=== PATIENT | female | born 1965 | race Caucasian/White ===

== ENCOUNTER 2023-05-23 16:36 | Emergency (ER) | payer OTHER, SELFPAY ==
[2023-05-23 16:44] VITALS: BP 133/91
[2023-05-23 17:11] LABS: % Basophils 0.8 % (0-2); % Eosinophils 7.6 % (0-6); % Immature Granulocytes 0.4 % (0-0.5); % Lymphocytes 36.9 % (20.5-51.1); % Monocytes 8.1 % (1.7-9.3); % Neutrophils 46.2 % (42.2-75.2); Absolute Basophils 0.1 10^3/uL (0-0.2); Absolute Eosinophils 0.6 10^3/uL (0-0.7); Absolute Lymphocytes 2.9 10^3/uL (1.2-3.4); Absolute Monocytes 0.6 10^3/uL (0.1-0.6); Absolute Neutrophils 3.6 10^3/uL (1.4-6.5); Hemoglobin 12.7 g/dL (12.0-16.0); Mean Corp Hgb Conc. 33.4 g/dL (33.0-37.0); Mean Corpuscular Hgb 28.2 pg (27.0-31.0); Mean Corpuscular Volume 84.3 fL (81.0-99.0); Mean Platelet Volume 10.5 fL (7.4-10.4); Nucleated Red Blood Cells % 0 %; Platelet Count 274 10^3/uL (130-400); Red Blood Cell Count 4.51 10^6/uL (4.20-5.40); White Blood Cell Count 7.8 10^3/uL (4.8-10.8)
[2023-05-23 17:25] LABS: ALT (SGPT) 16 U/L (0-35); AST (SGOT) 23 U/L (14-36); Albumin 4.4 g/dl (3.5-5.0); Alkaline Phosphatase 62 U/L (38-126); Blood Urea Nitrogen 29 mg/dl (7-17); Calcium 9.6 mg/dl (8.4-10.2); Carbon Dioxide 30 mmol/L (22-30); Chloride 104 mmol/L (98-107); Glucose 105 mg/dl (70-99); Potassium 5.4 mmol/L (3.5-5.1); Sodium 138 mmol/L (135-145); Total Bilirubin 0.4 mg/dl (0.2-1.3); Total Protein 7.5 g/dl (6.3-8.2); eGFR > 60.00
[2023-05-23 17:31] LABS: Troponin I < 0.012 ng/ml
--- NOTE | 2023-05-23 18:29 | ED.GENMED ---
History of Present Illness
<Gina Blackwell PA-C - Last Filed: 05/24/23 00:58>
General
Chief Complaint: Chest Pain
Source: patient
Exam Limitations: none
Time Seen by Provider: 05/23/23 18:05
Nursing documentation reviewed up to this point in time: agreed with
Travel History
Have you had any contact with someone who has COVID-19?: No
Do you have any symptoms of coronavirus? Fever > 100 degrees, chills, cough, shortness of breath, sore throat, loss of taste or smell, muscle aches, or headache?: No
History of Present Illness
History of Present Illness:
This is a 58-year-old female with no pertinent past medical history presenting to emergency department today with chest discomfort for the past 3-1/2 hours. She reports that she noticed the pain while at work today and noticed it when to take a
deep breath. She also feels that the pain worsens when she bends over and feels that when she bends over the discomfort will radiate to her jaw. She has no associated nausea, vomiting, back pain, shortness of breath. She denies any pain or
swelling in her legs that is new for her. She denies any recent long distance travel, recent hospitalizations, recent peritoneal mobility. She has not taken any forms of exogenous estrogen. She never had anything like this before. She denies any
URI symptoms, recent illnesses.
Review of Systems
<Gina Blackwell PA-C - Last Filed: 05/24/23 00:58>
Review of Systems
All Other Systems: ROS reviewed and negative except as documented in HPI and ROS
Phy Exam
<Gnia Blackwell PA-C - Last Filed: 05/24/23 00:58>
Physical Exam
Physical Exam:
General: Patient appears well and is in no acute distress
Skin: Warm and dry, no rashes or lesions
Cardiac: Regular rate and rhythm, no tenderness palpation of external chest
Pulm: Normal respiratory effort, lung sounds are equal bilaterally, no wheezes rales or rhonchi.
Musculoskeletal: Negative Homans' sign bilaterally. No redness or swelling of bilateral calves, no edema
Scores
<Gina Blackwell PA-C - Last Filed: 05/24/23 00:58>
Heart Score for Chest Pain Patients
STEMI patient?: No
History: Slightly or Non-Suspicious
ECG: Normal
Age: >45 - <65 years
Risk Factors: No Risk Factors
Troponin: </= Normal Limit
Heart Score for Chest Pain Patients: 1
Heart Score Risk: 2.5% MACE over next 6 weeks
Course
<Gina Blackwell PA-C - Last Filed: 05/24/23 00:58>
Orders/Labs/Results
Orders:
Orders
05/23/23 16:38
EKG [Electrocardiogram (*1)] Urgent
Reason for Study: Chest Pain
EKG- Treatment ONCE
05/23/23 16:55
Complete Blood Count/With Diff Urgent
Comprehensive Metabolic Panel Urgent
Troponin I Urgent
05/23/23 17:58
CR Chest - 2 Views Urgent
Comment:
Reason For Exam: sob
05/23/23 18:13
Respiratory Syncytial Virus Urgent
AMY Source: Nasal Swab
Specimen Description:
Date Specimen was Collected: 05/23/23
Time Specimen was Collected: 18:06
05/23/23 18:25
D-Dimer Urgent
05/23/23 18:58
Electrocardiogram (*1) Urgent
Reason for Study: Chest Pain
EKG- Treatment ONCE
05/23/23 19:40
Troponin I Urgent
Abnormal Lab Results
05/23/23
16:55
MPV 10.5 H fL
(7.4-10.4)
Eosinophils % 7.6 H %
(0-6)
Potassium 5.4 H mmol/L
(3.5-5.1)
BUN 29 H mg/dl
(7-17)
Glucose 105 H mg/dl
(70-99)
05/23/23 16:55
05/23/23 16:55
Vital Signs
Initial and Last Documented VS:
Initial Vital Signs
Temp Pulse Resp BP Pulse Ox
98.3 F 78 16 133/91 98
05/23/23 16:44 05/23/23 16:44 05/23/23 16:44 05/23/23 16:44 05/23/23 16:44
Last Documented Vital Signs
Temp Pulse Resp BP Pulse Ox
98.3 F 78 16 133/91 98
05/23/23 16:44 05/23/23 16:44 05/23/23 16:44 05/23/23 16:44 05/23/23 16:44
<Eron Ratliff, DO - Last Filed: 05/23/23 19:13>
Orders/Labs/Results
Orders:
Orders
05/23/23 16:38
EKG [Electrocardiogram (*1)] Urgent
Reason for Study: Chest Pain
EKG- Treatment ONCE
05/23/23 16:55
Complete Blood Count/With Diff Urgent
Comprehensive Metabolic Panel Urgent
Troponin I Urgent
05/23/23 17:58
CR Chest - 2 Views Urgent
Comment:
Reason For Exam: sob
05/23/23 18:13
Respiratory Syncytial Virus Urgent
AMY Source: Nasal Swab
Specimen Description:
Date Specimen was Collected: 05/23/23
Time Specimen was Collected: 18:06
05/23/23 18:25
D-Dimer Urgent
05/23/23 18:58
Electrocardiogram (*1) Urgent
Reason for Study: Chest Pain
EKG- Treatment ONCE
05/23/23 19:40
Troponin I Urgent
Abnormal Lab Results
05/23/23
16:55
MPV 10.5 H fL
(7.4-10.4)
Eosinophils % 7.6 H %
(0-6)
Potassium 5.4 H mmol/L
(3.5-5.1)
BUN 29 H mg/dl
(7-17)
Glucose 105 H mg/dl
(70-99)
05/23/23 16:55
05/23/23 16:55
Vital Signs
Initial and Last Documented VS:
Initial Vital Signs
Temp Pulse Resp BP Pulse Ox
98.3 F 78 16 133/91 98
05/23/23 16:44 05/23/23 16:44 05/23/23 16:44 05/23/23 16:44 05/23/23 16:44
Last Documented Vital Signs
Temp Pulse Resp BP Pulse Ox
98.3 F 78 16 133/91 98
05/23/23 16:44 05/23/23 16:44 05/23/23 16:44 05/23/23 16:44 05/23/23 16:44
<Gina Blackwell PA-C - Last Filed: 05/24/23 00:58>
MDM/Problems Addressed
Differential Diagnosis Includes:
Differentials include ACS, PE, pneumonia, musculoskeletal sprain/strain
MDM/Problems Addressed:
Chest pain
Chronic conditions affecting care:
n/a
Acute Exacerbation and/or Progression of Chronic Illness:
n/a
<Gina Blackwell PA-C - Last Filed: 05/24/23 00:58>
*Radiology
Radiology exam reviewed: preliminary read by ED provider (No acute cardiopulmonary abnormality)
*Pulse Oximetry
Patient hypoxic: no
*EKG
Interpreted by ED Provider?: Yes
EKG Intrepretation Date: 05/24/23
Interpretation: abnormal
Comparison EKG: changes noted (new PACs, upon recheck before discharge, PACs absent )
Heart Rate: 74
Rate: normal
Rhythm: sinus
[place]: normal axis
Interval: normal interval, normal QT interval and normal TN interval
QRS Pattern: normal QRS
Ischemia: no ischemia
*Critical Care Note
Total Time (30-74mins, 75-104mins- exclusive of procedures): Not Applicable
Data Reviewed
Review of Other/Old Records Reveals: Records (No recent hospitalizations, patient had operation in 2016 for)
Prescriptions/Medications Considered But Not Given:
n/a
Further Testing Considered But Not Given:
n/a
<Gina Blackwell PA-C - Last Filed: 05/24/23 00:58>
Patient Management
Escalation/DeEscalation of care consider admission/obs:
This is a 50-year-old female presenting to emergency department today with pleuritic chest pain. She has no pertinent past medical history. Her physical exam was unremarkable. Her initial EKG demonstrated normal sinus rhythm with PACs and initial
troponin was normal. Her repeat EKG demonstrated normal sinus rhythm and her repeat troponin is negative. D-dimer is negative. Chest x-ray showed no acute cardiopulmonary abnormality. She was not hypoxic. I suspect her symptoms likely
musculoskeletal or anxiety related. She will follow-up with [facility] cardiology. Patient vies return to the ER should she experience shortness of breath, worsening of her symptoms, or other concerning symptoms.
ED Attending Note
<Gina Blackwell PA-C - Last Filed: 05/24/23 00:58>
-
Portions of this chart may have been created with voice recognition software.� Occasional wrong word or��sound alike� substitutions may have occurred due to the inherent limitations of voice recognition software.
<Eron Ratliff, DO - Last Filed: 05/23/23 19:13>
ED Attending Note
Patient seen and examined by attending physician: Yes
I performed the substantive portion of visit, reviewed & personally made and approve the management plan that is documented in note by myself or EITAN.: Yes
ED Attending Note:
Seen with PA examined independently, sharp chest pain worse with deep breath and sitting forward EKG noted she did say that the pain went into her throat, troponin noted, will repeat she like to follow-up with CBC at discharge
D-dimer chest x-ray noted
Discharge Plan
Departure
Patient Disposition: Home (Routine Discharge)
Date of Disposition: 05/23/23
Time of Disposition: 20:37
Patient with high blood pressure during this ER visit?: Yes
Condition: Good
Discharge Problem:
Chest pain
Instructions: Chest Pain CBC Follow Up, BLOOD PRESSURE
Activity Restrictions/Additional Instructions:
Please return emergency department should you experience worsening of your symptoms or shortness of breath.
Please follow-up with your primary care provider. Please follow-up with Dr. Reynoso
Interventions
Interventions:
*General Assessment Last Done: 05/23/23 20:57
*Nursing Disposition Last Done: 05/23/23 20:57
ED- Cardiac Assessment Last Done: 05/23/23 18:25
Discharge Date and Time
Discharge Date/Time: 05/23/23 20:57
[2023-05-23 18:46] LABS: D-Dimer 0.45 ug/mlFEU (0.00-0.50)
[2023-05-23 20:12] LABS: Troponin I < 0.012 ng/ml
== END 2023-05-23 20:57 | disposition home or self-care (01) ==
LOC: EMR 16:36
PROVIDERS: Physician Assistant; EMERGENCY PHYSICIAN Emergency Medicine; FAMILY PHYSICIAN Family Medicine
DX: R07.1 Chest pain on breathing (principal); R68.84 Jaw pain; R03.0 Elevated blood-pressure reading, without diagnosis of hypertension; Z88.3 Allergy status to other anti-infective agents; Z88.0 Allergy status to penicillin
CPT/HCPCS: 99283; 71046; 80053; 84484; 85025; 85379; 87807; 93005

== ENCOUNTER → 2023-06-09 09:56 | Outpatient (REF) | payer OTHER, SELFPAY | LOC: RCS 09:56 | PROVIDERS: ATTENDING PHYSICIAN Internal Medicine Cardiovascular Disease; FAMILY PHYSICIAN Family Medicine | DX: R07.2 Precordial pain (principal) | CPT/HCPCS: 93017 ==

== ENCOUNTER → 2023-07-21 08:56 | Outpatient (REF) | payer OTHER, SELFPAY | LOC: DHCBC MAIN 08:56 | PROVIDERS: ATTENDING PHYSICIAN Internal Medicine Cardiovascular Disease; FAMILY PHYSICIAN Family Medicine | DX: R07.2 Precordial pain (principal) | CPT/HCPCS: 93306 ==

== ENCOUNTER → 2023-10-02 06:23 | Day surgery (SDC) | payer OTHER, SELFPAY | LOC: GI 06:23 | PROVIDERS: ATTENDING PHYSICIAN Internal Medicine Gastroenterology | DX: Z12.11 Encounter for screening for malignant neoplasm of colon (principal); Z53.9 Procedure and treatment not carried out, unspecified reason | CPT/HCPCS: 45378 ==

== ENCOUNTER → 2024-01-22 06:22 | Day surgery (SDC) | payer OTHER, SELFPAY | LOC: GI 06:22 | PROVIDERS: ATTENDING PHYSICIAN Internal Medicine Gastroenterology | DX: Z12.11 Encounter for screening for malignant neoplasm of colon (principal); K57.30 Diverticulosis of large intestine without perforation or abscess without bleeding; K62.89 Other specified diseases of anus and rectum | CPT/HCPCS: G0121 ==

== ENCOUNTER 2024-07-24 02:49 | Observation (INO) | payer OTHER, SELFPAY ==
[2024-07-23 19:34] VITALS: BP 142/93
[2024-07-23 19:52] LABS: % Basophils 0.5 % (0-2); % Eosinophils 1.1 % (0-6); % Immature Granulocytes 0.2 % (0-0.5); % Lymphocytes 15.8 % (20.5-51.1); % Monocytes 6.4 % (1.7-9.3); Absolute Basophils 0.1 10^3/uL (0-0.2); Absolute Eosinophils 0.1 10^3/uL (0-0.7); Absolute Lymphocytes 2.1 10^3/uL (1.2-3.4); Absolute Monocytes 0.9 10^3/uL (0.1-0.6); Absolute Neutrophils 10.1 10^3/uL (1.4-6.5); Hematocrit 39.3 % (37.0-47.0); Hemoglobin 13.5 g/dL (12.0-16.0); Mean Corp Hgb Conc. 34.4 g/dL (33.0-37.0); Mean Corpuscular Hgb 27.8 pg (27.0-31.0); Mean Platelet Volume 10.4 fL (7.4-10.4); Nucleated Red Blood Cells % 0 %; Platelet Count 237 10^3/uL (130-400); Red Blood Cell Count 4.85 10^6/uL (4.20-5.40); Red Cell Dist. Width 13.2 % (11.5-14.5); White Blood Cell Count 13.3 10^3/uL (4.8-10.8)
[2024-07-23 20:04] LABS: ALT (SGPT) 16 U/L (0-35); AST (SGOT) 24 U/L (14-36); Albumin 4.3 g/dl (3.5-5.0); Alkaline Phosphatase 62 U/L (38-126); Blood Urea Nitrogen 24 mg/dl (7-17); Calcium 10.2 mg/dl (8.4-10.2); Carbon Dioxide 27 mmol/L (22-30); Chloride 105 mmol/L (98-107); Glucose 118 mg/dl (70-99); Lipase 53 U/L (23-300); Potassium 4.3 mmol/L (3.5-5.1); Sodium 139 mmol/L (135-145); Total Bilirubin 0.5 mg/dl (0.2-1.3); Total Protein 7.4 g/dl (6.3-8.2); eGFR > 60.00
[2024-07-23] MEDS: NSS 1000 IV (23:22)
[2024-07-23] MEDS: TORADOL 15 MG IV (23:22)
--- NOTE | 2024-07-23 23:25 | ED.GENMED ---
History of Present Illness
<Jordana Groves PA-C - Last Filed: 07/24/24 03:34>
General
Chief Complaint: Abdominal Pain
Source: patient
Exam Limitations: none
Time Seen by Provider: 07/23/24 22:37
Nursing documentation reviewed up to this point in time: agreed with
History of Present Illness
History of Present Illness:
Patient is a 59-year-old female with history of IBS presenting to the emergency department with abdominal cramping and diarrhea. Patient states she felt as if she had a bowel movement around noon and states it was normal for her. However briefly
following this she started to have pretty severe abdominal cramping in her lower abdomen. She has since had multiple episodes of diarrhea. She has had very mild nausea although denies any vomiting, fever, or urinary symptoms.
Patient has no history of similar symptoms. No recent antibiotic use. No raw or undercooked seafood/shellfish. No when at home with similar symptoms.
Review of Systems
<Jordana Groves PA-C - Last Filed: 07/24/24 03:34>
Review of Systems
Allergies reviewed?: Yes
All Other Systems: ROS reviewed and negative except as documented in HPI and ROS
Phy Exam
<Jordana Groves PA-C - Last Filed: 07/24/24 03:34>
Physical Exam
Physical Exam:
Vitals: Mildly hypertensive on arrival, otherwise vital signs stable.
General: Patient is in mild discomfort due to pain
Skin: Warm and dry, no rashes or lesions
Head: Normocephalic, atraumatic
Eyes: Sclera nonicteric. EOMs intact. No nystagmus.
Throat: Protecting airway
Neck: Normal ROM, no cervical spine tenderness, no meningismus
Cardiac: Regular rate and rhythm, no murmurs.
Pulm: Normal respiratory effort, no wheezes, rales, rhonchi heard on exam.
Abdomen: Abdomen soft. Moderate tenderness in left lower quadrant without rebound tenderness or guarding. No CVA tenderness.
Extremities: No evidence of cyanosis or edema. Palpable DP pulses bilaterally
Neuro: AAOx3. Grossly intact.
Psychiatric: Normal affect.
Course
<Jordana Groves PA-C - Last Filed: 07/24/24 03:34>
Orders/Labs/Results
Orders:
Orders
07/23/24 19:25
IV Insert/Care/Rem.- Treatment PRN
Urinalysis Reflex To Culture Urgent
Date Specimen was Collected: 07/23/24
Time Specimen was Collected: 19:25
07/23/24 19:45
Complete Blood Count/With Diff Urgent
Comprehensive Metabolic Panel Urgent
Lipase Urgent
07/23/24 23:12
CT Abd/pelvis W Iv Cont Urgent
Comment:
Reason For Exam: LLQ abdominal pain, diarrhea
0.9% Sodium Chloride 1000 ml [Nss] 1,000 ml IV BOLUS
Ketorolac [Toradol] 15 mg IV NOW STA
07/24/24 00:28
Urine Microscopic Reflex Cult Urgent
07/24/24 01:44
Magnesium Citrate [Citroma] 300 ml PO ONCE ONE
07/24/24 02:24
Enema As Directed
Type: Milk and molasses
Amount: 480 ml
07/24/24 02:32
Admit/Transfer Patient As Directed
Co-Sign Provider:
Level of Care: Observation services
Assign to:: Medical/Surgical
Physician / Group: hospitalist
Diagnosis: severe constipation
Code Status As Directed
Resuscitation Status: Full Code
PRN Pain Medication Management As Directed
May give lesser potent ordered pain med per pt: Yes
preference::
Protocol:: Medication orders for pain may be administered in a
manner that supports deferring to patient preference
when the pt is:
- Requesting an ordered lesser potent pain medication.
Least to most potent pain medications are defined
as: acetaminophen < NSAID < tramadol < opioids
(morphine, oxycodone, hydromorphone).
- Requesting a lesser dose of the same medication IF
ORDERED.
- Requesting a less intrusive route of administration
if both routes are prescribed by the provider (PO <
IV).
07/24/24 03:00
Flush (0.9% Sodium Chloride) [Flush (Nss)] See Dose Instructions IV PER PROTOCOL
07/24/24 03:39
Acetaminophen [Tylenol] 650 mg PO Q4HPRN PRN
Bisacodyl [Dulcolax] 10 mg RECTAL [id number] PRN
Ketorolac [Toradol] 10 mg IV Q6HPRN PRN
Ondansetron Injectable [Zofran] 4 mg IV Q6HPRN PRN
Polyethylene Glycol Powder [Miralax] 17 grams PO BID PRN
07/24/24 03:39
Consult Notification Routine
Specialty to Notify: Gastroenterology
Date consulting provider notified: 07/24/24
Time consulting provider notified: 11:43
Notified:: Provider
GASTROINTESTINAL CONSULT Routine
Consulting Provider: Piter Cheema
Was physician already notified: No
Reason for consult: stercoral colitis
Activity As Directed
Activity Level: With Assistance
Pneumatic Compression Sleeves As Directed
Type: Knee high
Vital Signs As Directed
Frequency: Per unit guidelines
DX Deep Vein Thrombosis Video Routine
07/24/24 Breakfast
Regular
At Your Request: Full Participation
Does patient need a safe tray?: No
07/24/24 08:00
magnesium citrate 100 mg PO DAILY
Abnormal Lab Results
07/23/24 07/24/24
19:45 00:28
WBC 13.3 H 10^3/uL
(4.8-10.8)
Absolute Neuts (auto) 10.1 H 10^3/uL
(1.4-6.5)
Absolute Monos (auto) 0.9 H 10^3/uL
(0.1-0.6)
Neutrophils % 76.0 H %
(42.2-75.2)
Lymphocytes % 15.8 L %
(20.5-51.1)
BUN 24 H mg/dl
(7-17)
Glucose 118 H mg/dl
(70-99)
Urine Albumin (Reflex) 1+ A
(Neg - Trace)
07/23/24 19:45
07/23/24 19:45
Vital Signs
Initial and Last Documented VS:
Initial Vital Signs
Temp Pulse Resp BP Pulse Ox
98.0 F 87 16 142/93 99
07/23/24 19:34 07/23/24 19:34 07/23/24 19:34 07/23/24 19:34 07/23/24 19:34
Last Documented Vital Signs
Temp Pulse Resp BP Pulse Ox
98.1 F 70 20 112/60 98
07/24/24 14:31 07/24/24 14:31 07/24/24 14:31 07/24/24 14:31 07/24/24 07:00
<Sagrario Mario MD - Last Filed: 07/26/24 09:20>
Orders/Labs/Results
Orders:
Orders
07/23/24 19:25
IV Insert/Care/Rem.- Treatment PRN
Urinalysis Reflex To Culture Urgent
Date Specimen was Collected: 07/23/24
Time Specimen was Collected: 19:25
07/23/24 19:45
Complete Blood Count/With Diff Urgent
Comprehensive Metabolic Panel Urgent
Lipase Urgent
07/23/24 23:12
CT Abd/pelvis W Iv Cont Urgent
Comment:
Reason For Exam: LLQ abdominal pain, diarrhea
0.9% Sodium Chloride 1000 ml [Nss] 1,000 ml IV BOLUS
Ketorolac [Toradol] 15 mg IV NOW STA
07/24/24 00:28
Urine Microscopic Reflex Cult Urgent
07/24/24 01:44
Magnesium Citrate [Citroma] 300 ml PO ONCE ONE
07/24/24 02:24
Enema As Directed
Type: Milk and molasses
Amount: 480 ml
07/24/24 02:32
Admit/Transfer Patient As Directed
Co-Sign Provider:
Level of Care: Observation services
Assign to:: Medical/Surgical
Physician / Group: hospitalist
Diagnosis: severe constipation
Code Status As Directed
Resuscitation Status: Full Code
PRN Pain Medication Management As Directed
May give lesser potent ordered pain med per pt: Yes
preference::
Protocol:: Medication orders for pain may be administered in a
manner that supports deferring to patient preference
when the pt is:
- Requesting an ordered lesser potent pain medication.
Least to most potent pain medications are defined
as: acetaminophen < NSAID < tramadol < opioids
(morphine, oxycodone, hydromorphone).
- Requesting a lesser dose of the same medication IF
ORDERED.
- Requesting a less intrusive route of administration
if both routes are prescribed by the provider (PO <
IV).
07/24/24 03:00
Flush (0.9% Sodium Chloride) [Flush (Nss)] See Dose Instructions IV PER PROTOCOL
07/24/24 03:39
Acetaminophen [Tylenol] 650 mg PO Q4HPRN PRN
Bisacodyl [Dulcolax] 10 mg RECTAL [id number] PRN
Ketorolac [Toradol] 10 mg IV Q6HPRN PRN
Ondansetron Injectable [Zofran] 4 mg IV Q6HPRN PRN
Polyethylene Glycol Powder [Miralax] 17 grams PO BID PRN
07/24/24 03:39
Consult Notification Routine
Specialty to Notify: Gastroenterology
Date consulting provider notified: 07/24/24
Time consulting provider notified: 11:43
Notified:: Provider
GASTROINTESTINAL CONSULT Routine
Consulting Provider: Piter Cheema
Was physician already notified: No
Reason for consult: stercoral colitis
Activity As Directed
Activity Level: With Assistance
Pneumatic Compression Sleeves As Directed
Type: Knee high
Vital Signs As Directed
Frequency: Per unit guidelines
DX Deep Vein Thrombosis Video Routine
07/24/24 Breakfast
Regular
At Your Request: Full Participation
Does patient need a safe tray?: No
07/24/24 08:00
magnesium citrate 100 mg PO DAILY
Abnormal Lab Results
07/23/24 07/24/24
19:45 00:28
WBC 13.3 H 10^3/uL
(4.8-10.8)
Absolute Neuts (auto) 10.1 H 10^3/uL
(1.4-6.5)
Absolute Monos (auto) 0.9 H 10^3/uL
(0.1-0.6)
Neutrophils % 76.0 H %
(42.2-75.2)
Lymphocytes % 15.8 L %
(20.5-51.1)
BUN 24 H mg/dl
(7-17)
Glucose 118 H mg/dl
(70-99)
Urine Albumin (Reflex) 1+ A
(Neg - Trace)
07/23/24 19:45
07/23/24 19:45
Vital Signs
Initial and Last Documented VS:
Initial Vital Signs
Temp Pulse Resp BP Pulse Ox
98.0 F 87 16 142/93 99
07/23/24 19:34 07/23/24 19:34 07/23/24 19:34 07/23/24 19:34 07/23/24 19:34
Last Documented Vital Signs
Temp Pulse Resp BP Pulse Ox
98.1 F 70 20 112/60 98
07/24/24 14:31 07/24/24 14:31 07/24/24 14:31 07/24/24 14:31 07/24/24 07:00
<Jordana Groves PA-C - Last Filed: 07/24/24 03:34>
MDM/Problems Addressed
Differential Diagnosis Includes:
Not limited to: Acute diverticulitis, colitis, constipation, bowel obstruction, viral gastroenteritis, etc.
MDM/Problems Addressed:
59-year-old female presenting with lower abdominal pain and diarrhea which started early afternoon today. Patient does have history of constipation. No associated fever, vomiting, infectious diarrhea risk factors. No history of similar symptoms.
Patient hypertensive with otherwise stable vital signs. She is afebrile. Physical exam as above. Differential broad at this time. Labs initiated in triage significant for leukocytosis of 13.3 with left shift. Otherwise no clinically significant
abnormalities. Differential broad at this time. Will check urinalysis and CT abdomen/pelvis with IV contrast. Will give IV fluids and IV Toradol. Will closely monitor and reassess.
Update: Urine with no evidence of infection. CT scan shows findings of significant constipation as well as concern for developing stercoral colitis. On reassessment�patient did have improvement in symptoms following Toradol. However�given concern
for stercoral colitis and severe constipation feel patient should be admitted for close monitoring and observation. Patient comfortable with this plan. Given patient is afebrile with otherwise no risk factors for infectious etiology�will hold
antibiotics at this time. Will give magnesium citrate in ED to help relieve constipation. Patient accepted to hospital service in stable condition. Patient seen with attending physician.
Chronic conditions affecting care:
IBS
Acute Exacerbation and/or Progression of Chronic Illness:
Acute constipation for concern of developing stercoral colitis
<Jordana Groves PA-C - Last Filed: 07/24/24 03:34>
*Radiology
Radiology exam reviewed: preliminary read by ED provider and radiology read reviewed
*Pulse Oximetry
Patient hypoxic: no
*EKG
Interpreted by ED Provider?: NA
*Deputy Juvenile Officer Interpretation
Rate: Deputy Juvenile Officer- N/A
*Critical Care Note
Total Time (30-74mins, 75-104mins- exclusive of procedures): Not Applicable
<Jordana Groves PA-C - Last Filed: 07/24/24 03:34>
Patient Management
Discussion with other providers: Hospitalist
Escalation/DeEscalation of care consider admission/obs:
Admit for further evaluation/management
ED Attending Note
<Jordana Groves PA-C - Last Filed: 07/24/24 03:34>
-
Portions of this chart may have been created with voice recognition software.� Occasional wrong word or��sound alike� substitutions may have occurred due to the inherent limitations of voice recognition software.
<Sagrario Mario MD - Last Filed: 07/26/24 09:20>
ED Attending Note
Patient seen and examined by attending physician: Yes
I performed the substantive portion of visit, reviewed & personally made and approve the management plan that is documented in note by myself or EITAN.: Yes
ED Attending Note:
59-year-old female with a history of IBS developed several episodes of nonbloody diarrhea today associated with crampy lower abdominal pain especially left lower quadrant that was greater than pain expected with typical IBS. Status post Toradol
here, pain much improved. No nausea vomiting fever, blood in stools, etc. She did not describe a sense of fullness in the rectum. On exam patient has mild to moderate left lower quadrant tenderness, no rebound or guarding. CT suggest sterile
coral colitis. Recommendation stay overnight, continued observation, bowel regimen to relieve severe constipation noted.
Discharge Plan
Departure
Patient Disposition: Admit
Date of Disposition: 07/24/24
Time of Disposition: 01:44
Presentation/result/management discussed w/ accepting MD/DO: Hospitalist
Discharge Problem:
Constipation, Stercoral colitis
Interventions
Interventions:
*Risk Screen - Suicide Last Done: 07/23/24 23:23
*General Assessment Last Done: 07/23/24 19:34
*Neglect/Abuse Screening Last Done: 07/23/24 19:34
*ED- Fall Risk Assessment Last Done: 07/23/24 23:23
*ED COVID-19 Vaccine History Last Done: 07/23/24 19:34
*Nursing Disposition Last Done: 07/24/24 03:00
LY-Xcigti-Tcdrvkljzl Assessment Last Done: 07/23/24 23:25
Discharge Date and Time
Discharge Date/Time: 07/24/24 03:32
[2024-07-23 23:26] VITALS: BP 115/86; BMI 23.7
[2024-07-24 00:35] LABS: Urine Albumin 1+ (Neg - Trace); Urine Bilirubin Negative (Negative); Urine Character Clear (Clear); Urine Color Yellow; Urine Glucose Negative (Negative); Urine Ketone Negative (Negative); Urine Leukocyte Negative (Negative); Urine Nitrite Negative (Negative); Urine Occult Blood Negative (Negative); Urine Urobilinogen Negative (Neg - 1+)
[2024-07-24 00:43] LABS: Urine Red Blood Cell None Seen /HPF (0-2); Urine Squamous Cell >30 /LPF (Few); Urine White Cell None Seen /HPF (0-5)
[2024-07-24] MEDS: CITROMA 300 ML PO (01:53)
[2024-07-24 02:00] VITALS: BP 138/87
--- NOTE | 2024-07-24 02:21 | HPS.HSE ---
Family Physician
-
Family Physician: Mary George
Chief Complaint
-
Abdominal discomfort
History of Present Illness
This is a 59-year-old female with past medical history significant for IBS, osteoporosis presenting to the emergency department with 1 day history of abdominal symptoms including constipation and loose stools.
Patient reported that symptoms began on the day of admission. Prior to that she has been well-managed on mag citrate for IBS and she has had intermittent constipation and diarrhea. However today she had a bowel movement when this started feeling
some tenderness most and urgency. She attempted to have a bowel movement but only had a small amount and then started having small amounts of liquid stool. She denied any melena. She denied any hematochezia. She continued to feel inadequate
bowel evacuation. She reports abdominal bloating. She denies nausea or vomiting. She reports crampy abdominal pain. The crampy abdominal pain was improved after a dose of Toradol.
She had a colonoscopy December of last year which showed no significant abnormalities. There were no masses, inflammation or obstruction. It showed diverticulosis.
In the emergency department she was afebrile, blood pressure was 138/87 with a pulse of 72 satting 96% on room air. White count was 13.3, she had normal hemoglobin and platelets. Electrolytes were all normal. BUN/creatinine were normal.
CT of the abdomen and pelvis showed large amount of stool in the colon suggesting constipation. Mild to moderate wall thickening and inflammatory changes of the sigmoid colon and rectum. This consistent with proctocolitis. No evidence of bowel
obstruction. Colonic diverticulosis without diverticulitis.
Medical History
Past Medical History
Past Medical History: Reports Other (Irritable bowel syndrome, osteoporosis)
Past Surgical History: Reports None
Social History
Tobacco: Non-smoker
Alcohol: Occasional
Drug: None
Personal:
Living: With Family
Employment: Employed
Family History
Family History: Not pertinent
Allergies / Home Medications
Allergies reflects when Allergies were last updated in [employer].
Home Medications with original date entered in [employer]
Allergy/Medication List:
Allergies
Allergy/AdvReac Type Severity Reaction Status Date / Time
Penicillins Allergy Unknown Rash Verified 07/23/24 19:36
penicillin G Allergy Unknown Verified 07/23/24 19:36
Home Medications
magnesium citrate 100 mg tablet 100 mg PO DAILY 07/23/24
Review of Systems
-
Constitutional: Reports No Symptoms
EENT: Reports No Symptoms
Respiratory: Reports No Symptoms
Cardiac: Reports No Symptoms
Abdomen/GI: Reports Constipated
: Reports No Symptoms
Musculoskeletal: Reports No Symptoms
Skin: Reports No Symptoms
Neurological: Reports No Symptoms
Endocrine: Reports No Symptoms
Hematologic/Lymphatic: Reports No Symptoms
Psych: Reports No Symptoms
Physical Exam
Vital Signs
Vital Signs
Temp Pulse Resp BP Pulse Ox
98.3 F 72 16 138/87 96
07/23/24 23:26 07/24/24 02:00 07/24/24 02:00 07/24/24 02:00 07/24/24 02:00
Physical Exam
General: Well Developed, Well Nourished, No Apparent Distress and Comfortable
HEENT: NormoCephalic, Anicteric, Moist mucous membranes and Atraumatic
Respiratory: Clear
Cardiac: S1/S2 and Regular Rhythm
Breast: Deferred by me
GI: Soft, Non Tender, Non Distended and Normal Bowel Sounds
Rectal: Deferred by Provider
Genito-urinary: Deferred by me
Musculoskeletal: No Clubbing, No Cyanosis and No Edema
Skin: Warm
Neuro: AO x 3 and Nonfocal/grossly intact
Hematologic/Lymphatic: No Lymphadenopathy
Psych: Calm
Laboratory Results
-
07/23/24 19:45
07/23/24 19:45
Laboratory Results
Total Bilirubin 0.5 mg/dl (0.2-1.3) 07/23/24 19:45
AST 24 U/L (14-36) 07/23/24 19:45
ALT 16 U/L (0-35) 07/23/24 19:45
Alkaline Phosphatase 62 U/L (38-126) 07/23/24 19:45
Lipase 53 U/L (23-300) 07/23/24 19:45
Data Reviewed
-
CT Scan: Report Reviewed by me
Lab Data: Labs Reviewed by me
Old Records: Reviewed
Impression/Plan
-
IMPRESSION:
59-year-old female with history of IBS and osteoporosis presents to the emergency department with constipation and liquid stool found to have constipation with likely stercoral colitis in the sigmoid and rectum. No bowel obstruction. Improved
symptoms since Toradol.
PLAN:
Stool impaction/stercoral colitis - Acute episode, non-toxic appearing, hemodynamicallys table.
- admit to med/surg obs
- will start with enema (milk of molasses
- mag-citrate 300
- continue magnesium citrate 100 daily
- miralax bid, hold for diarrhea
- pain control and antiemetics
- GI consultation
DVT PPX - SCDs for now
Code status - Full Code
[2024-07-24 03:42] VITALS: BMI 23.1
[2024-07-24 03:51] VITALS: BP 134/81
[2024-07-24] MEDS: ZOFRAN 4 MG IV (04:18)
--- NOTE | 2024-07-24 04:33 | PTCARENOTE ---
Pt arrived to floor via stretcher and ambulated to room with a steady gait. Pt making many bathroom trips 2/t aggressive bowel reg received in ED. Pt also reports nausea with vomiting 2/t mag citrate, pt report this happens whenever she has to take
it. Pt given zofran and plan of care reviewed. Pt ordered reg diet, however pt aware she should retsrict to sips and chips until n/v has resolved. VSS, call valadez within reach. Will review chart and follow plan of care.
[2024-07-24 07:00] VITALS: BP 110/70
--- NOTE | 2024-07-24 08:58 | CON.GI ---
Addendum entered and electronically signed by Piter Cheema MD 07/24/24 10:20:
Patient seen and examined, agree with respecters for note. Patient is a 59-year-old female with past medical history as noted presents with increasing abdominal comfort care she does have a history of chronic constipation, taking magnesium citrate,
milk does not drink a lot of water. She is only passed a small mount of liquid stool, and upon presentation CT scan showed large amount of stool throughout her colon. After enema she had good results, with multiple bowel movements, now feeling
much better. She has no further abdominal pain and denies any fevers or chills. She is been tolerating liquid without difficulty. On exam she has no significant tenderness. She is up-to-date on colonoscopy.
1. Abdominal pain: Consistent with constipation and stercoral colitis. She did have good results with enema and feeling much better with no significant pain now, benign exam. Her white count did increase to 20,000, though again has been feeling
well and likely more reactionary. At this point is okay to advance diet, continue bowel and supportive care. She is okay to DC from GI standpoint, we will try Linzess as an outpatient and discussed continued supportive care with fiber and
hydration. She knows to call the office to follow-up on discharge.
Original Note:
Consultation
-
Date/Time Consultation Requested: 07/24/24338
Date/Time Consultation Performed: 07/24/24819
Requesting Provider: Dr. Flower
Performing Provider: Dr. Cheema/ALBERTA Shin
Reason for Consultation: constipation
Medical History
Chief Complaint / HPI
Chief Complaint: abdominal pain, diarrhea
History of Present Illness:
59-year-old female past medical history of IBS-C, osteoporosis up-to-date on colonoscopy presents to the emergency room with increased abdominal discomfort, bloating, cramping with urgency. Usually takes magnesium citrate pills total of 250 mg in
the evening for her constipation. He is only able to pass a small [place] stool scale #2 bowel movement in the morning. She started having worsening discomfort. Only able to pass a small amount of liquid stool around it. Discomfort cramping she
came to the emergency room for further evaluation. CT of the abdomen and pelvis that showed a large amount of stool in the colon, evaluation by myself showed very large amount of stool especially in the right side of colon. Official read not
available however per ER records Mild to moderate wall thickening and inflammatory changes of the sigmoid colon and rectum. Consistent with proctocolitis. No evidence of bowel obstruction. Colonic diverticulosis without diverticulitis. Patient
denies any fevers, chills, nausea, vomiting, melena, hematochezia, dysphagia or odynophagia. No early satiety or unintentional weight loss. Given a milk of molasses enema followed by a bottle of magnesium citrate with multiple episodes of
evacuation of bowels with improvement of her symptoms. She had no signs of bleeding. She states she is feeling improved and has no further discomfort. She is on clear liquids at the present time.
Past Medical History
Past Medical History: Other (IBS-c, osteoporosis)
Past Surgical History: None
Social History
Tobacco: Non-Smoker
Alcohol: Occasional
Drug: None
Personal:
Living: With Family
Employment: Employed
Family History
Family History: Other (Father with history of colon cancer, family history of inflammatory bowel disease)
Allergies / Home Medications
Allergy/AdvReac Type Severity Reaction Status Date / Time
Penicillins Allergy Unknown Rash Verified 07/23/24 19:36
penicillin G Allergy Unknown Verified 07/23/24 19:36
�Medication �Instructions �Recorded
magnesium citrate 100 mg tablet 100 mg PO DAILY 07/23/24
Review of Systems
-
All other systems: A 12 pt ROS was Negative except as stated above in HPI
Vital Signs
Temp Pulse Resp BP Pulse Ox
97.8 F 92 16 110/70 98
07/24/24 07:00 07/24/24 07:00 07/24/24 07:00 07/24/24 07:00 07/24/24 07:00
Physical Exam
Exam
General: No Apparent Distress
HEENT: Anicteric
Respiratory: Clear
Cardiac: Regular Rhythm
GI: Soft, Non Tender, Non Distended and Normal Bowel Sounds
Skin: Warm and Dry
Neuro: AO x 3
Psych: Calm
Results
WBC 13.3 10^3/uL (4.8-10.8) H 07/23/24 19:45
Hgb 13.5 g/dL (12.0-16.0) 07/23/24 19:45
Hct 39.3 % (37.0-47.0) 07/23/24 19:45
MCV 81.0 fL (81.0-99.0) 07/23/24 19:45
Plt Count 237 10^3/uL (130-400) 07/23/24 19:45
Absolute Neuts (auto) 10.1 10^3/uL (1.4-6.5) H 07/23/24 19:45
Sodium 139 mmol/L (135-145) 07/23/24 19:45
Potassium 4.3 mmol/L (3.5-5.1) 07/23/24 19:45
Chloride 105 mmol/L (98-107) 07/23/24 19:45
Carbon Dioxide 27 mmol/L (22-30) 07/23/24 19:45
BUN 24 mg/dl (7-17) H 07/23/24 19:45
Creatinine 0.7 mg/dL (0.6-1.0) 07/23/24 19:45
Calcium 10.2 mg/dl (8.4-10.2) 07/23/24 19:45
Total Bilirubin 0.5 mg/dl (0.2-1.3) 07/23/24 19:45
AST 24 U/L (14-36) 07/23/24 19:45
ALT 16 U/L (0-35) 07/23/24 19:45
Alkaline Phosphatase 62 U/L (38-126) 07/23/24 19:45
Lipase 53 U/L (23-300) 07/23/24 19:45
Diagnostic Image Results:
CT of the abdomen and pelvis performed, official read pending however per ER report is as follows: large amount of stool in the colon suggesting constipation. Mild to moderate wall thickening and inflammatory changes of the sigmoid colon and
rectum. This consistent with proctocolitis. No evidence of bowel obstruction. Colonic diverticulosis without diverticulitis.
Prior GI Procedures:
EGD: None
Colonoscopy: 01/22/2024 (Dr. Hagan) - The examined portion of the ileum was normal.
- Diverticulosis in the recto-sigmoid colon and in the
sigmoid colon.
- Anal papilla(e) were hypertrophied.
- No specimens collected.
Colonoscopy 10/02/2023 (Dr. Hagan): - Preparation of the colon was poor.
- Stool in the rectum, in the recto-sigmoid colon and
in the sigmoid colon.
- No specimens collected.
Colonoscopy 05/15/2015 (Dr. Hagan)- The examined portion of the ileum was normal.
- One 2 mm polyp in the transverse colon. Resected and
retrieved.
- Erythematous mucosa in the transverse colon. Biopsied.
- One 1 mm polyp at the recto-sigmoid colon. Resected
and retrieved.
Assessment / Plan
-
59-year-old female past medical history of IBS-C, osteoporosis up-to-date on colonoscopy presents to the emergency room with increased abdominal discomfort, bloating, cramping with urgency. Usually takes magnesium citrate pills total of 250 mg in
the evening for her constipation. He is only able to pass a small [place] stool scale #2 bowel movement in the morning. She started having worsening discomfort. Only able to pass a small amount of liquid stool around it. Discomfort cramping she
came to the emergency room for further evaluation. CT of the abdomen and pelvis that showed a large amount of stool in the colon, evaluation by myself showed very large amount of stool especially in the right side of colon. Official read not
available however per ER records Mild to moderate wall thickening and inflammatory changes of the sigmoid colon and rectum. Consistent with proctocolitis. No evidence of bowel obstruction. Colonic diverticulosis without diverticulitis. Patient
has since been given a milk of molasses enema, followed by a bottle of magnesium citrate with good evacuation of bowels. No further episodes of abdominal discomfort. Feels back to herself. Tolerating clear liquid diet. Repeat labs pending from
this morning. On presentation she had a mild leukocytosis of 13.3, normal hemoglobin 13.5. She has been afebrile. She has no abdominal discomfort or tenderness on palpation.
Impression:
Chronic constipation, with severe constipation seen on CT extending to right side of colon
Preliminary read on CT shows mild wall thickening sigmoid colon and rectum likely secondary to severe constipation
Plan:
-Patient has already been given milk of molasses enema followed by bottle of magnesium citrate with good evacuation of bowels and resolution of discomfort
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
-Discussed that she needs to increase her hydration currently drinking only approximately 32 to 40 ounces daily. Will need to increase to 64 to 80 ounces daily.
-Had discussed as an outpatient possibly going on Linzess, will arrange for outpatient treatment and follow-up.
-If not bowel regimen discussed with patient if not able to go on Linzess (if cost prohibitive or not covered)
-Patient aware that if Linzess not covered or unable to obtain. She will increase her magnesium citrate in the evening up to 500 mg hs and add MiraLAX half capful to full capful to titrate to desired bowel movement
-Patient will call the office on Friday for follow-up appointment.
-
-
Thank you for consultation and allowing me to participate in the patient's care. Please call the developmental education instructor GI physician during the after hours with any questions or concerns.
[2024-07-24 09:23] LABS: % Basophils 0.3 % (0-2); % Eosinophils 0.1 % (0-6); % Immature Granulocytes 0.5 % (0-0.5); % Lymphocytes 4.4 % (20.5-51.1); % Neutrophils 86.7 % (42.2-75.2); Absolute Basophils 0.1 10^3/uL (0-0.2); Absolute Immature Granulocytes 0.1 10^3/uL (0-0.05); Absolute Lymphocytes 0.9 10^3/uL (1.2-3.4); Absolute Monocytes 1.6 10^3/uL (0.1-0.6); Absolute Neutrophils 17.5 10^3/uL (1.4-6.5); Hematocrit 40.5 % (37.0-47.0); Hemoglobin 13.5 g/dL (12.0-16.0); Mean Corp Hgb Conc. 33.3 g/dL (33.0-37.0); Mean Corpuscular Hgb 27.7 pg (27.0-31.0); Mean Corpuscular Volume 83.2 fL (81.0-99.0); Mean Platelet Volume 10.7 fL (7.4-10.4); Nucleated Red Blood Cells % 0 %; Platelet Count 240 10^3/uL (130-400); Red Blood Cell Count 4.87 10^6/uL (4.20-5.40); Red Cell Dist. Width 13.2 % (11.5-14.5); White Blood Cell Count 20.2 10^3/uL (4.8-10.8)
[2024-07-24 09:45] LABS: ALT (SGPT) 18 U/L (0-35); AST (SGOT) 25 U/L (14-36); Albumin 3.9 g/dl (3.5-5.0); Alkaline Phosphatase 71 U/L (38-126); Blood Urea Nitrogen 19 mg/dl (7-17); Calcium 9.5 mg/dl (8.4-10.2); Carbon Dioxide 27 mmol/L (22-30); Chloride 107 mmol/L (98-107); Estimated Creatinine Clearance 74 ml/min; Glucose 123 mg/dl (70-99); Potassium 4.8 mmol/L (3.5-5.1); Sodium 142 mmol/L (135-145); Total Bilirubin 0.8 mg/dl (0.2-1.3); Total Protein 6.8 g/dl (6.3-8.2); eGFR > 60.00
--- NOTE | 2024-07-24 09:46 | CM ---
CM met with pt at bedside.
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 Ind with adl's/amb. No DME.
SOLER reviewed, signed, original on chart.
PCP is Mary George and pharmacy is [facility] in [place].
Discharge dispo: no skilled dc needs anticipated.
--- NOTE | 2024-07-24 12:35 | W.PN.UPDATE ---
Update Note
Progress Note Update
Patient seen and examined at bedside. Admitted past midnight. Nonbillable note
59-year-old female with history of IBS came with acute on chronic constipation with possible stercoral colitis. CT scan with possible colitis. Laxatives given in the ED. Leukocytosis this morning. Denies any fever. Feeling better. Denies any
nausea, vomiting. Discussed with GI who will plan on getting patient Linzess outpatient. Advised patient to increase her hydration. Continue with laxatives on discharge. Repeat CBC later today with possibility of discharge.
General: Well Developed, Well Nourished
HEENT: NormoCephalic, Anicteric
Respiratory: Clear
GI: Soft, Non Tender, Non Distended
Musculoskeletal: No Edema
Psych: Calm
[2024-07-24 13:12] LABS: % Basophils 0.3 % (0-2); % Eosinophils 0.2 % (0-6); % Immature Granulocytes 0.4 % (0-0.5); % Lymphocytes 9.3 % (20.5-51.1); % Monocytes 9.2 % (1.7-9.3); % Neutrophils 80.6 % (42.2-75.2); Absolute Basophils 0.1 10^3/uL (0-0.2); Absolute Immature Granulocytes 0.1 10^3/uL (0-0.05); Absolute Lymphocytes 1.5 10^3/uL (1.2-3.4); Absolute Monocytes 1.5 10^3/uL (0.1-0.6); Absolute Neutrophils 13.2 10^3/uL (1.4-6.5); Hematocrit 38.2 % (37.0-47.0); Hemoglobin 12.8 g/dL (12.0-16.0); Mean Corp Hgb Conc. 33.5 g/dL (33.0-37.0); Mean Corpuscular Hgb 27.9 pg (27.0-31.0); Mean Corpuscular Volume 83.2 fL (81.0-99.0); Mean Platelet Volume 10.8 fL (7.4-10.4); Nucleated Red Blood Cells % 0 %; Platelet Count 225 10^3/uL (130-400); Red Blood Cell Count 4.59 10^6/uL (4.20-5.40); Red Cell Dist. Width 13.3 % (11.5-14.5); White Blood Cell Count 16.4 10^3/uL (4.8-10.8)
--- NOTE | 2024-07-24 13:33 | W.DCSUMMARY ---
Discharge Summary
Discharge Data
Date of Admission: 07/24/24
Date of Discharge: 07/24/24
-
Pending Results: No
Hospital Course
59-year-old female with history of IBS came with acute on chronic constipation with possible stercoral colitis. CT scan with possible colitis secondary to constipation. Patient symptoms continue to improve with laxatives. Patient was also seen by
GI who recommended patient to follow-up with them closely outpatient for Linzess. She also had some leukocytosis which continue to improve without antibiotics. She will instructed to get repeat CBC done outpatient. She was also instructed to
increase her hydration. Once her symptoms continue to improve, she was then discharged home with instructions to follow-up with all her physicians outpatient.
Discharge Plan
-
Patient Disposition: Home (Routine Discharge)
Discharge Diagnosis/Procedures: Acute on chronic constipation with suspected stercoral colitis
Leukocytosis
Diet: As tolerated
Activity: As tolerated
Driving Restrictions: As prior to admission
Bathing Restrictions: None
Blood Work: CBC next week with primary care provider
Activity Restrictions/Additional Instructions:
Need to increase fluid intake to 64 to 80 ounces daily
increase her magnesium citrate in the evening up to 500 mg hs and add MiraLAX half capful to full capful to titrate to desired bowel movement
Referrals:
Mary George MD [Family Provider] - in less than 1 week
Angella Hagan MD [Active] -
Prescriptions:
New
polyethylene glycol 3350 17 gram Powder In Packet
17 g PO BID PRN (Reason: constipation) Qty: 0 0RF
Continued
magnesium citrate 100 mg Tablet
100 mg PO DAILY
Discharge Orders:
Discharge Patient (As Directed); Ordered 07/24/24
Ordered By: Suhail Weaver
Discharge Date and Time
Discharge Date/Time: 07/24/24 14:40
Print Language: EGYPTIAN
[2024-07-24 14:31] VITALS: BP 112/60
== END 2024-07-24 14:40 | disposition home or self-care (01) ==
LOC: 3 WEST ACU 02:49
PROVIDERS: Emergency Medicine; ADMITTING PHYSICIAN Internal Medicine; ATTENDING PHYSICIAN Internal Medicine; CONSULT PHYSICIAN Internal Medicine Gastroenterology; EMERGENCY PHYSICIAN Emergency Medicine; FAMILY PHYSICIAN Family Medicine
DX: K59.09 Other constipation (principal); K58.1 Irritable bowel syndrome with constipation; R19.7 Diarrhea, unspecified; I10 Essential (primary) hypertension; R10.32 Left lower quadrant pain; D72.829 Elevated white blood cell count, unspecified; M81.0 Age-related osteoporosis without current pathological fracture; K57.30 Diverticulosis of large intestine without perforation or abscess without bleeding; K76.89 Other specified diseases of liver; Z88.0 Allergy status to penicillin; Z83.79 Family history of other diseases of the digestive system; Z80.0 Family history of malignant neoplasm of digestive organs; Z86.0100 Personal history of colon polyps, unspecified
CPT/HCPCS: 74177; 80053; 81003; 81015; 83690; 85025; 96361; 96374; 99285; G0378; Q9967

== ENCOUNTER → 2024-11-24 13:55 | Outpatient (REF) | payer OTHER, SELFPAY | LOC: WDC 13:55 | PROVIDERS: ATTENDING PHYSICIAN Physician Assistant | DX: Z12.31 Encounter for screening mammogram for malignant neoplasm of breast (principal) | CPT/HCPCS: 77063; 77067 ==

== ENCOUNTER → 2025-02-16 07:52 | Outpatient (REF) | payer OTHER, SELFPAY | LOC: RAD 07:52 | PROVIDERS: ATTENDING PHYSICIAN Family Medicine | DX: M81.0 Age-related osteoporosis without current pathological fracture (principal) | CPT/HCPCS: 77080 ==

== ENCOUNTER 2025-03-24 22:35 | Emergency (ER) | payer OTHER, SELFPAY ==
[2025-03-24 22:41] VITALS: BP 144/83
--- NOTE | 2025-03-24 23:21 | ED.GENMED ---
History of Present Illness
General
Chief Complaint: Chest Pain
Source: patient
Exam Limitations: none
Time Seen by Provider: 03/24/25 22:55
History of Present Illness
History of Present Illness:
60-year-old female with history of irritable bowel syndrome constipation predominant on Linzess also uses estrogen cream twice a week presents complaining of pleuritic chest discomfort over the past 2 days. No known injury. She denies fever or
significant cough. No shortness of breath. No abdominal pain nausea or vomiting. She endorses she flew to [place] in [place] a month ago. No leg swelling or calf pain. Pain does not radiate to her back but does travel up her neck. No other
complaints at this time.
Phy Exam
Physical Exam
Physical Exam:
General: Well-appearing female no acute respiratory distress
HEENT normal cephalic atraumatic heart: Regular rate and rhythm
Lungs: Clear no wheeze
Abdomen is soft nontender extremities: No cyanosis or edema skin warm no rash
Scores
Heart Score for Chest Pain Patients
STEMI patient?: No
History: Slightly or Non-Suspicious
ECG: Normal
Age: >45 - <65 years
Risk Factors: No Risk Factors
Troponin: </= Normal Limit
Heart Score for Chest Pain Patients: 1
Heart Score Risk: 2.5% MACE over next 6 weeks
Course
Orders/Labs/Results
Orders:
Orders
03/24/25 22:40
EKG [Electrocardiogram (*1)] Urgent
Reason for Study: Chest Pain
03/24/25 22:41
EKG- Treatment ONCE
03/24/25 23:30
Comprehensive Metabolic Panel Urgent
D-Dimer Urgent
03/24/25 23:31
Complete Blood Count/With Diff Urgent
Troponin I Urgent
03/25/25 00:04
CT Chest PE Study Urgent
Comment:
Reason For Exam: pleuritic chest pain
Abnormal Lab Results
03/24/25 03/24/25
23:30 23:31
MCHC 32.3 L g/dL
(33.0-37.0)
MPV 10.5 H fL
(7.4-10.4)
Absolute Lymphs (auto) 3.7 H 10^3/uL
(1.2-3.4)
Absolute Monos (auto) 1.0 H 10^3/uL
(0.1-0.6)
Monocytes % 11.0 H %
(1.7-9.3)
D-Dimer 1.36 H ug/mlFEU
(0.00-0.50)
BUN 23 H mg/dl
(7-17)
03/24/25 23:31
03/24/25 23:30
Vital Signs
Initial and Last Documented VS:
Initial Vital Signs
Temp Pulse Resp BP Pulse Ox
97.6 F 91 18 144/83 98
03/24/25 22:41 03/24/25 22:41 03/24/25 22:41 03/24/25 22:41 03/24/25 22:41
Last Documented Vital Signs
Temp Pulse Resp BP Pulse Ox
97.6 F 80 19 118/70 96
03/24/25 22:41 03/25/25 01:00 03/25/25 01:00 03/25/25 01:00 03/25/25 01:00
MDM/Problems Addressed
Differential Diagnosis Includes:
Pleuritic chest discomfort. Consider musculoskeletal chest discomfort versus PE versus GERD versus ACS. EKG shows sinus rhythm without ischemic changes rate of 77. This is a normal EKG. Given recent flight will check D-dimer although vital signs
are stable with no tachycardia or hypoxia. Troponin pending as well.
*Pulse Oximetry
SaO2: 98
Oxygen Mode of Delivery: Room air
Patient hypoxic: no
*Critical Care Note
Total Time (30-74mins, 75-104mins- exclusive of procedures): Not Applicable
Update Note
Update Note:
D-dimer was elevated which prompted a CT of the chest. CT was negative for acute findings. Patient reassured. Troponin within normal limits. Symptoms have been ongoing for several days. Unknown likely to be ACS. No need to repeat troponin.
Question GERD versus musculoskeletal discomfort. No indication for admission. Stable for discharge with follow-up
ED Attending Note
-
Portions of this chart may have been created with voice recognition software.� Occasional wrong word or��sound alike� substitutions may have occurred due to the inherent limitations of voice recognition software.
Discharge Plan
Departure
Patient Disposition: Home (Routine Discharge)
Date of Disposition: 03/25/25
Time of Disposition: 01:18
Patient with high blood pressure during this ER visit?: No
Discharge Problem:
Chest pain
Instructions: Costochondritis (DC), Chest Pain PCP Follow Up
Prescriptions:
No Action
magnesium citrate 100 mg Tablet
100 mg PO DAILY
polyethylene glycol 3350 17 gram Powder In Packet
17 g PO BID PRN (Reason: constipation) Qty: 0 0RF
Referrals:
Mary George MD [Family Provider, Family Practice]
Activity Restrictions/Additional Instructions:
Please return here for worsening symptoms. Consider Tylenol for pain. Follow-up with your doctor otherwise
Interventions
Interventions:
*Risk Screen - Suicide Last Done: 03/24/25 22:45
*General Assessment Last Done: 03/24/25 22:45
*Neglect/Abuse Screening Last Done: 03/24/25 22:45
*ED- Fall Risk Assessment Last Done: 03/24/25 22:45
*ED COVID-19 Vaccine History Last Done: 03/24/25 22:45
*ED Influenza Vaccine History Last Done: 03/24/25 22:45
ED- Cardiac Assessment Last Done: 03/24/25 23:04
Discharge Date and Time
Print Language: ETHIOPIAN
[2025-03-24 23:38] LABS: Hematocrit 39.9 % (37.0-47.0); Hemoglobin 12.9 g/dL (12.0-16.0); Mean Corp Hgb Conc. 32.3 g/dL (33.0-37.0); Mean Corpuscular Volume 83.6 fL (81.0-99.0); Nucleated Red Blood Cells % 0 %; Platelet Count 244 10^3/uL (130-400); Red Cell Dist. Width 13.2 % (11.5-14.5)
[2025-03-25] VITALS: BP 123/65
[2025-03-25 00:01] LABS: D-Dimer 1.36 ug/mlFEU (0.00-0.50)
[2025-03-25 00:04] LABS: ALT (SGPT) 15 U/L (0-35); AST (SGOT) 21 U/L (14-36); Albumin 4.3 g/dl (3.5-5.0); Alkaline Phosphatase 58 U/L (38-126); Blood Urea Nitrogen 23 mg/dl (7-17); Calcium 9.6 mg/dl (8.4-10.2); Carbon Dioxide 29 mmol/L (22-30); Chloride 105 mmol/L (98-107); Glucose 99 mg/dl (70-99); Potassium 4.8 mmol/L (3.5-5.1); Sodium 138 mmol/L (135-145); Total Protein 7.3 g/dl (6.3-8.2); eGFR > 60.00
[2025-03-25 00:15] LABS: Troponin I 0.021 ng/ml
[2025-03-25 01:00] VITALS: BP 118/70
== END 2025-03-25 01:27 | disposition home or self-care (01) ==
LOC: EMR 22:35
PROVIDERS: Physician Assistant; EMERGENCY PHYSICIAN Emergency Medicine; FAMILY PHYSICIAN Family Medicine
DX: R07.89 Other chest pain (principal); K59.00 Constipation, unspecified
CPT/HCPCS: 99284; 71275; 80053; 84484; 85025; 85379; 93005; Q9967